=== PATIENT | male | born 1995 | race African-American/Black ===

== ENCOUNTER 2017-07-27 12:34 | Emergency (ER) | payer SELFPAY ==
[~2017-07-27] VITALS: Ht 170.2 cm; Wt 90.7 kg
--- NOTE | 2017-07-27 12:58 | NUR ---
SEEN BY DANNA COULTER
--- NOTE | 2017-07-27 13:04 | NUR ---
PT TAKEN TO CT
--- NOTE | 2017-07-27 14:10 | NUR ---
Patient discharged to home in stable condition. Written and verbal after care instructions given. Patient verbalizes understanding of instruction.
[2017-07-27 14:15] VITALS: BP 118/75
== END 2017-07-27 14:15 | disposition home or self-care (01) ==
LOC: ER 12:37
DX: R51 Headache (principal); V49.59XA Passenger injured in collision with other motor vehicles in traffic accident, initial encounter; Y93.89 Activity, other specified; Y92.413 State road as the place of occurrence of the external cause; Y99.8 Other external cause status
CPT/HCPCS: 70450-TC; A4606; Z7610